=== PATIENT | female | born 1965 | race Caucasian/White ===

== ENCOUNTER → 2016-07-11 | Outpatient (CLI) | payer BC ==
[~2016-07-11] MED LIST: ALPR0.25 PO; IBUP-1174 PO; IOHEXOL 350 MG/ML 100ML IJ ONE; LOSA100T22 PO; SUMA100T2 PO; TRAZ150T79 PO; TRIA75TA55 PO
[2016-07-11 09:35] VITALS: BP 111/70
[2016-07-11 10:00] VITALS: BP 115/78
== END | disposition home or self-care (01) ==
LOC: Rad HDHVI 09:16
PROVIDERS: ATTEND Internal Medicine Cardiovascular Disease
DX: K76.0 Fatty (change of) liver, not elsewhere classified (principal); I26.99 Other pulmonary embolism without acute cor pulmonale; I10 Essential (primary) hypertension; F41.9 Anxiety disorder, unspecified; J84.10 Pulmonary fibrosis, unspecified
CPT/HCPCS: 71275; G0463; Q9967

== ENCOUNTER 2016-08-11 15:51 | Inpatient (IN) | payer BC ==
[~2016-08-11] VITALS: Ht 160 cm; Wt 78.5 kg
[~2016-08-11 15:51] MED LIST changes: -IOHEXOL 350 MG/ML 100ML IJ ONE
[2016-08-11] MEDS ORDERED: ASPirin 81 mg TAB PO ONE (16:30)
[2016-08-11] MEDS ORDERED: LORazepam 0.5 MG TAB PO ONE (16:30)
[2016-08-11 17:00] LABS: Basophils # (auto) 0 uL; Basophils % (auto) 0.5 % (0.0-2.0); Eosinophils # (auto) 0.2 uL; Eosinophils % (auto) 2.9 % (0.0-7.0); Hematocrit 41.9 % (36.0-46.0); Hemoglobin 14.4 g/dL (12.2-16.2); Lymphocytes # (auto) 1.1 uL; Lymphocytes % (auto) 18.7 % (10.0-50.0); Mean Corpuscular Hemoglobin 34.6 pg (28.0-32.0); Mean Corpuscular Hgb Conc. 34.4 g/dL (32.0-36.0); Mean Corpuscular Volume 100.5 fL (80.0-100.0); Mean Platelet Volume 7.4 fL (7.4-10.4); Monocytes # (auto) 0.5 uL; Monocytes % (auto) 8.3 % (0.0-12.0); Neutrophils # (auto) 4.1 uL; Neutrophils % (auto) 69.6 % (37.0-80.0); Platelet Count (auto) 239 10^3/uL (140-450); Red Cell Distribution Width 12.4 % (11.6-16.0); White Blood Cell 5.9 10^3/uL (4.4-10.8)
[2016-08-11] MEDS ORDERED: SODIUM CHLORIDE 0.9% 500 ML IVB ONE (17:18)
[2016-08-11 17:21] LABS: Albumin 3.3 g/dL (3.4-5.0); BUN/Creatinine Ratio 22.6; Calcium 8.3 mg/dL (8.5-10.1); Potassium 3.6 mmol/L (3.5-5.1)
[2016-08-11 17:23] LABS: Partial Thromboplastin Time 34.7 sec (22.64-33.71)
[2016-08-11 17:24] LABS: Bilirubin, Total 0.4 mg/dL (0.2-1.0); Total Protein 6.7 g/dL (6.4-8.2)
[2016-08-11 17:25] LABS: INR 1.45 (0.9-1.15); Prothrombin Time 14.9 sec (9.37-12.3)
[2016-08-11 18:09] LABS: B-Type Natriuretic Peptide 12.56 pg/mL (0-100)
[2016-08-11 18:25] LABS: Temperature: 23.7 C (20.0-25.0)
[2016-08-11] MEDS ORDERED: SUMAtriptan SUCCINATE 25 MG TAB PO ONE ×2 (18:45→19:30)
[2016-08-11] MEDS ORDERED: MORPHINE SULF INJ 2 MG/ML SYRINGE 1ML IV PRN (18:45)
[2016-08-11] MEDS ORDERED: NITROGLYCERIN 0.4 MG SL TAB SL PRN (18:45)
[2016-08-11 19:20] LABS: Amylase 54 U/L (25-115)
[2016-08-11] MEDS: ENOXAPARIN SOD 60 MG/0.6 ML SYRINGE SC SCH (20:00)
[2016-08-11 20:10] VITALS: BP 116/81
[2016-08-11 22:00] VITALS: BP 116/81
[2016-08-11] MEDS: IBUPROFEN 600 MG TAB PO SCH (22:00)
[2016-08-11] MEDS ORDERED: IBUPROFEN 600 MG TAB PO ONE (22:00)
[2016-08-11] MEDS ORDERED: ALPRAZolam 0.25 MG TAB PO ONE (22:00)
[2016-08-11] MEDS ORDERED: ENOXAPARIN SOD 60 MG/0.6 ML SYRINGE SC ONE (22:00)
[2016-08-11] MEDS ORDERED: traZODone HCL 50 MG TAB PO ONE (22:00)
[2016-08-11] MEDS: ALPRAZolam 0.25 MG TAB PO SCH (22:12)
[2016-08-11] MEDS: traZODone HCL 50 MG TAB PO SCH (22:12)
[2016-08-12] VITALS (7 sets, daily range): BP systolic 96–140; BP diastolic 57–90
[2016-08-12] MEDS: IBUPROFEN 600 MG TAB PO SCH ×3 (06:00→21:52)
[2016-08-12] MEDS ORDERED: TRIAMTERENE/HCTZ 37.5/25 MG CAP PO ONE (10:00)
[2016-08-12] MEDS ORDERED: LOSARTAN POTASSIUM 50 MG TAB PO ONE (10:00)
[2016-08-12] MEDS: LOSARTAN POTASSIUM 50 MG TAB PO SCH (10:00)
[2016-08-12] MEDS: ALPRAZolam 0.25 MG TAB PO SCH ×2 (10:05→21:42)
[2016-08-12] MEDS: ENOXAPARIN SOD 60 MG/0.6 ML SYRINGE SC SCH ×2 (10:06→19:36)
[2016-08-12] MEDS: TRIAMTERENE/HCTZ 37.5/25 MG CAP PO SCH (10:20)
[2016-08-12] MEDS: traZODone HCL 50 MG TAB PO SCH (21:42)
[2016-08-12] MEDS ORDERED: TRAZ100T2 PO (22:01)
[2016-08-13 04:55] VITALS: BP 109/62
[2016-08-13] MEDS: IBUPROFEN 600 MG TAB PO SCH ×3 (06:00→22:00)
[2016-08-13 08:00] VITALS: BP 128/80
[2016-08-13 09:00] VITALS: BP 128/80
[2016-08-13] MEDS: ALPRAZolam 0.25 MG TAB PO SCH ×2 (10:00→22:00)
[2016-08-13] MEDS: LOSARTAN POTASSIUM 50 MG TAB PO SCH (10:00)
[2016-08-13] MEDS: TRIAMTERENE/HCTZ 37.5/25 MG CAP PO SCH (10:18)
[2016-08-13] MEDS: ENOXAPARIN SOD 60 MG/0.6 ML SYRINGE SC SCH ×2 (10:18→19:52)
[2016-08-13 13:00] VITALS: BP 140/79
[2016-08-13 17:00] VITALS: BP 128/80
[2016-08-13 22:01] VITALS: BP 149/89
[2016-08-13] MEDS: traZODone HCL 50 MG TAB PO SCH (22:27)
[2016-08-14 04:01] VITALS: BP 111/56
[2016-08-14] MEDS: IBUPROFEN 600 MG TAB PO SCH (05:54)
[2016-08-14 07:23] VITALS: BP 119/75
[2016-08-14] MEDS: ENOXAPARIN SOD 60 MG/0.6 ML SYRINGE SC SCH ×2 (08:00→20:00)
[2016-08-14] MEDS: LOSARTAN POTASSIUM 50 MG TAB PO SCH (10:26)
[2016-08-14] MEDS: TRIAMTERENE/HCTZ 37.5/25 MG CAP PO SCH (10:27)
[2016-08-14] MEDS: ALPRAZolam 0.25 MG TAB PO SCH (10:31)
[2016-08-14] MEDS: IBUPROFEN 400 MG TAB PO PRN (12:26)
[2016-08-14 13:14] VITALS: BP 135/101
[2016-08-14 16:19] VITALS: BP 125/68
[2016-08-14] MEDS: traZODone HCL 50 MG TAB PO SCH (21:45)
[2016-08-14 22:00] VITALS: BP 133/78
[2016-08-15 05:00] VITALS: BP 102/56
[2016-08-15] MEDS ORDERED: LIDOCAINE 2%HCL (LOCAL ANESTH.) INJ 20ML MDV ONE (07:19)
[2016-08-15] MEDS ORDERED: IOHEXOL 350 MG/ML 100ML IJ ONE (07:19)
[2016-08-15] MEDS ORDERED: MIDAZOLAM HCL 1MG/1ML-2 ML VIAL ONE (07:46)
[2016-08-15] MEDS ORDERED: SODIUM CHL 0.9% 0 ML ONE (07:47)
[2016-08-15] MEDS ORDERED: fentaNYL CITRATE 100 MCG/2 ML VL ONE (07:47)
[2016-08-15] MEDS ORDERED: ANGIOMAX 250 MG VIAL IV ONE (07:47)
[2016-08-15] MEDS: ENOXAPARIN SOD 60 MG/0.6 ML SYRINGE SC SCH (08:00)
[2016-08-15 09:16] VITALS: BP 118/66
[2016-08-15] MEDS: LOSARTAN POTASSIUM 50 MG TAB PO SCH (11:48)
[2016-08-15] MEDS: IBUPROFEN 400 MG TAB PO PRN (11:49)
[2016-08-15] MEDS: TRIAMTERENE/HCTZ 37.5/25 MG CAP PO SCH (11:50)
[2016-08-15 13:55] VITALS: BP 154/94
[2016-08-15 14:33] VITALS: BP 154/94
[2016-08-15 16:00] VITALS: BP 152/92
[2016-08-15 16:15] VITALS: BP 152/92
== END 2016-08-15 16:00 | disposition home or self-care (01) | DRG 287 ==
LOC: EDBD 15:51 → ER 15:54 → TELE 15:55 → TELE-WESTW 19:54
PROVIDERS: ADMIT Internal Medicine Cardiovascular Disease; ATTEND Internal Medicine Cardiovascular Disease
PROC: 4A023N8 Measurement of Cardiac Sampling and Pressure, Bilateral, Percutaneous Approach (ICD-10-PCS; principal; 2016-08-15)
PROC: B2111ZZ Fluoroscopy of Multiple Coronary Arteries using Low Osmolar Contrast (ICD-10-PCS; 2016-08-15)
PROC: B2151ZZ Fluoroscopy of Left Heart using Low Osmolar Contrast (ICD-10-PCS; 2016-08-15)
DX: R07.89 Other chest pain (principal); I10 Essential (primary) hypertension; J45.909 Unspecified asthma, uncomplicated; J84.10 Pulmonary fibrosis, unspecified; F41.9 Anxiety disorder, unspecified; Z83.3 Family history of diabetes mellitus; Z82.49 Family history of ischemic heart disease and other diseases of the circulatory system; Z86.718 Personal history of other venous thrombosis and embolism; Z86.711 Personal history of pulmonary embolism
CPT/HCPCS: 36415; 36600; 71010; 80053; 82150; 82805; 83690; 83735; 83880; 84484; 85025; 85379; 85610; 85730; 93005; 93460; 96360; J2250

== ENCOUNTER → 2016-11-09 | Outpatient (CLI) | payer BC ==
[~2016-11-09] MED LIST changes: -SUMA100T2 PO; +TRAZ100T2 PO; -TRAZ150T79 PO
== END | disposition home or self-care (01) ==
LOC: Rad HDHVI 09:54
PROVIDERS: ATTEND Internal Medicine Cardiovascular Disease
DX: I82.403 Acute embolism and thrombosis of unspecified deep veins of lower extremity, bilateral (principal); I26.99 Other pulmonary embolism without acute cor pulmonale; R06.02 Shortness of breath; Z86.718 Personal history of other venous thrombosis and embolism
CPT/HCPCS: 93970

== ENCOUNTER → 2016-11-10 | Outpatient (CLI) | payer BC ==
[2016-11-10 12:03] LABS: Basophils # (auto) 0 uL; Basophils % (auto) 0.5 % (0.0-2.0); Eosinophils # (auto) 0.2 uL; Eosinophils % (auto) 4.1 % (0.0-7.0); Hematocrit 46.3 % (36.0-46.0); Hemoglobin 15.7 g/dL (12.2-16.2); Lymphocytes # (auto) 1.5 uL; Lymphocytes % (auto) 27.3 % (10.0-50.0); Mean Corpuscular Hemoglobin 32.6 pg (28.0-32.0); Mean Corpuscular Hgb Conc. 33.8 g/dL (32.0-36.0); Mean Corpuscular Volume 96.3 fL (80.0-100.0); Mean Platelet Volume 8.5 fL (7.4-10.4); Monocytes # (auto) 0.4 uL; Monocytes % (auto) 6.6 % (0.0-12.0); Neutrophils # (auto) 3.3 uL; Neutrophils % (auto) 61.5 % (37.0-80.0); Platelet Count (auto) 296 10^3/uL (140-450); Red Cell Distribution Width 12.9 % (11.6-16.0); White Blood Cell 5.3 10^3/uL (4.4-10.8)
[2016-11-10 12:06] LABS: Urine Bilirubin Negative (Negative); Urine Blood Negative /uL (Negative); Urine Color Yellow (Yellow); Urine Glucose Normal (Normal); Urine Ketone Negative (Negative); Urine Nitrite Negative (Negative); Urine Urobilinogen Normal (Negative)
[2016-11-10 12:51] LABS: Albumin 4.3 g/dL (3.4-5.0); BUN/Creatinine Ratio 24.1; Bilirubin, Direct 0.2 mg/dL (0-0.2); Bilirubin, Total 0.9 mg/dL (0.2-1.0); Calcium 10.2 mg/dL (8.5-10.1); Potassium 3.7 mmol/L (3.5-5.1); Total Protein 8.5 g/dL (6.4-8.2)
== END | disposition home or self-care (01) ==
LOC: LAB 08:21
PROVIDERS: ATTEND Internal Medicine Cardiovascular Disease
DX: I10 Essential (primary) hypertension (principal); E78.00 Pure hypercholesterolemia, unspecified; K74.1 Hepatic sclerosis; E11.9 Type 2 diabetes mellitus without complications; E03.9 Hypothyroidism, unspecified; D64.9 Anemia, unspecified; E55.9 Vitamin D deficiency, unspecified; N39.0 Urinary tract infection, site not specified
CPT/HCPCS: 36415; 80048; 80061; 80076; 81003; 82306; 83036; 84443; 85025

== ENCOUNTER 2017-03-25 11:12 | Emergency (ER) | payer BC ==
[~2017-03-25] VITALS: Ht 160 cm; Wt 77.1 kg
[2017-03-25 11:25] VITALS: BP 132/78
[2017-03-25] MEDS ORDERED: KETOROLAC TROMETH 60MG/2ML VIAL IM ONE (12:45)
== END 2017-03-25 13:02 | disposition home or self-care (01) ==
LOC: ER 11:12
DX: S32.501A Unspecified fracture of right pubis, initial encounter for closed fracture (principal); S70.12XA Contusion of left thigh, initial encounter; I10 Essential (primary) hypertension; Z79.899 Other long term (current) drug therapy; W18.39XA Other fall on same level, initial encounter; Y93.89 Activity, other specified; Y92.89 Other specified places as the place of occurrence of the external cause; Y99.8 Other external cause status
CPT/HCPCS: 73502; 96372; 99284; J1885

== ENCOUNTER → 2017-09-14 | Outpatient (CLI) | payer BC | END | disposition home or self-care (01) | LOC: Rad HDHVI 14:08 | PROVIDERS: ATTEND Internal Medicine Cardiovascular Disease | DX: I51.7 Cardiomegaly (principal); I10 Essential (primary) hypertension; I26.99 Other pulmonary embolism without acute cor pulmonale | CPT/HCPCS: 93306 ==